=== PATIENT | female | born 1975 | race African-American/Black ===

== ENCOUNTER 2020-11-17 01:07 | Emergency (ER) | payer OTHER, SELFPAY ==
--- NOTE | ~2020-11-17 | CT_ITS ---
EXAMINATION: CT abdomen pelvis w con INDICATION: Umbilical pain TECHNIQUE: Computed tomographic images of the abdomen and pelvis were obtained after the administrati on of 100 cc of Omnipaque 350 intravenous contrast. The dose-length product (DLP) was 980.88 mGy-cm. Automated exposure control and iterative reconstruction technique were employed. COMPARISON: None available FINDINGS: There are airspace opacities of the left lower lobe, right lower lobe, and right middle lob e. The heart size is normal. The gallbladder is surgically absent. The liver, spleen, pancreas, and a drenal glands are normal. The kidneys are unremarkable. No pathologically enlarged abdominal or pelvi c lymph nodes are identified. There is no free intraperitoneal gas or evidence of bowel obstruction. High density material is seen in the otherwise normal appendix. There appears to be a submucosal fibr oid of the uterine body. There is a fat-containing umbilical hernia. There is mild lumbar spondylosis . IMPRESSION: 1. Pneumonia involving the right middle and lower lobes and left lower lobe. 2. No acute findings of the abdomen or pelvis. Reviewed, dictated and finalized at location A. OR SPECIALIST
--- NOTE | ~2020-11-17 | XR_ITS ---
EXAMINATION: XR chest 1V portable INDICATION: Chest tightness TECHNIQUE: Portable AP chest at 0 to 40 hours COMPARISON: None available FINDINGS: There are airspace opacities of the right upper lung zone and left lung base. No pleural ef fusion or pneumothorax is identified. The cardiomediastinal silhouette is normal. The visualized osse ous structures are unremarkable. IMPRESSION: 1. Airspace opacities of the right upper and left lower lung zones, consistent with pneumonia. Reviewed, dictated and finalized at location A. KROOM CLERK
[2020-11-17 01:06] VITALS: BP 117/56; PULSE 74; RESP 18; TEMP 37.1; O2SAT 99
[2020-11-17 01:38] LABS: Basophils Percent Auto 0.2 % (0.2-1.2); Hematocrit 32.4 % (37.0-47.0); Hemoglobin 9.3 g/dL (12.0-15.0); Immature Granulocyte Absolute 0.02 K/mm3 (0.00-0.031); Immature Granulocyte Percent A 0.3 % (0-0.5); Mean Corpuscular HGB Conc 28.7 g/dl (32-36); Mean Corpuscular Hemoglobin 19.6 pg (26-34); Mean Corpuscular Volume 68.2 fl (80-100); Mean Platelet Volume 10.8 fl (7.4-10.4); Monocytes Absolute Auto 0.7 K/mm3 (0.1-0.6); Monocytes Percent Auto 10.5 % (2.6-8.5); Neutrophils Absolute Auto 4.5 K/mm3 (1.3-6.7); Platelet Count Result 228 k/mm3 (150-375); Red Blood Count 4.75 M/mm3 (4.2-5.4); Red Cell Distribution Width 17.4 % (11.5-14.5); White Blood Count 6.7 K/mm3 (4.5-10.0)
[2020-11-17 01:49] LABS: Alanine Aminotransferase 30 U/L (4-35); Albumin Level 4.2 g/dL (3.5-5.1); Alkaline Phosphatase 95 U/L (38-126); Anion Gap 7 mmol/L (8-16); Aspartate Amino Transferase 35 U/L (14-36); Bilirubin,Total 0.5 mg/dL (0.2-1.3); Blood Urea Nitrogen 11 mg/dL (7-17); Calcium 8.4 mg/dL (8.4-10.2); Carbon Dioxide 27 mmol/L (22-30); Chloride 101 mmol/L (98-107); Estimated CRCL calculation 119 ml/min; Estimated Glomerular Filt Rate > 60; Glucose 93 mg/dL (65-105); Lipase 34 U/L (23-300); Potassium 3.6 mmol/L (3.4-5.0); Sodium 135 mmol/L (137-145)
[2020-11-17 01:58] LABS: Add Urine Microscopic? YES; Appearance Urine Clear (Clear); Bacteria Urine Trace /hpf; Bilirubin Urine Negative (Negative); Blood Urine Negative (Negative); Color Urine Yellow (Yellow); Glucose Urine UA Negative (Negative); Ketones Urine 1+ mg/dL (Negative); Leukocyte Esterase Ur Negative LEU/UL (Negative); Mucus Urine Heavy /lpf; Nitrate Urine Negative (Negative); Protein Urine 2+ mg/dL (Negative); RBC Urine 0-2 /hpf (0-2); Specific Grav Ur 1.033 (1.001-1.035); Squamous Epithelial Cell Urine Few /hpf (Few); Urobilinogen Urine Negative mg/dL (<2.0); WBC Urine 0-3 /hpf
--- NOTE | 2020-11-17 02:13 | ECG_ITS ---
Measurements Intervals [place] Rate: 67 P: 11 NE: 165 QRS: -13 QRSD: 94 T: 40 QT: 378 QTc: 399 Interpretive Statements SINUS RHYTHM BORDERLINE ST-T WAVE ABNORMALITY- HIGH LATERAL LEADS BORDERLINE ECG Electronically Signed On 11-17-2020 7:15:31 HAND MODEL by Jeff Mancia D.O.
--- NOTE | 2020-11-17 02:15 | ED.GENADULT ---
HPI - General Adult General Chief complaint: Abdominal Pain Stated complaint: ABD Pain Time Seen by Provider: 11/17/20 01:13 Source: patient Mode of arrival: EMS Limitations: no limitations History of Present Illness HPI narrative: This patient is a 45 year old female who presents for evaluation of not feeling well. She states she has been home from work for 3 days due to not feeling well. Her initial symptoms were sinus congestion and drainage. She also reports nausea and poor appetite. Today she also noticed drainage and pain around her umbilicus. She denies vomiting, cough, shortness of breath or diarrhea. She is unsure if she could have covid. She does note that one of her daughters is sick as well and she can not taste or smell. Related Data Allergies Allergy/AdvReac Type Severity Reaction Status Date / Time No Known Allergies Allergy Unverified 12/07/17 16:11 Review of Systems Review of Systems: All systems reviewed & are unremarkable except as noted in HPI and below Constitutional: Constitutional: Denies chills, Reports fatigue and Denies fever(s) ENT: Reports nasal congestion and Denies sore throat Cardiovascular: Cardiovascular: Denies chest pain Respiratory: Respiratory: Denies cough and Denies dyspnea Gastrointestinal: Gastrointestinal: Reports abdominal pain, Denies diarrhea, Reports nausea and Denies vomiting Musculoskeletal: Musculoskeletal: Denies back pain Neurologic: Denies headache(s), Denies focal weakness and Denies numbness PMFSH Past Medical History Medical History (Updated 11/17/20 @ 03:32 by Lexy Nolan MD) CVA (cerebral vascular accident) Lupus Social History Social History (Updated 11/17/20 @ 02:21 by Lexy Nolan MD) Smoking status: Current every day smoker Exam Const: General: no acute distress and alert Orientation/consciousness: patient oriented x3 HENMT: Head: atraumatic Ears: TM's normal bilaterally Face and sinus: face symmetric Mouth: Yes Normal oral and palatal mucosa present, Yes lip normal, Yes oropharynx normal and Yes moist mucous membranes Eyes: EOM: EOMs intact bilaterally Resp: Effort & Inspection: normal respiratory effort and no retractions Auscultation: clear to auscultation bilaterally Cardio: Rate: regular rate Rhythm: regular rhythm Heart sounds: no murmurs GI: GI Palp: Yes Soft to palpation, Yes Tenderness to palpation present (GI) and No Guarding due to palpation present (GI) Auscultation: normal bowel sounds Skin: General skin exam: normal color Neuro: General: patient oriented x3, moves all extremities and CN's II-XI intact bilaterally Course Reevaluation(s) Reevaluation #1: I have discussed with patient that she has signs consistent wit COVID and she has pneumonia . She has normal vitals and oxygen saturation. She does not take any immunosuppressants. I discussed discharge plan and management. She will follow up with PCP Date: 11/17/20 Time: 03:28 Vital Signs Vital signs: Vital Signs Temperature 98.8 F 11/17/20 01:06 Pulse Rate 74 11/17/20 01:06 Respiratory Rate 18 11/17/20 01:06 Blood Pressure 117/56 L 11/17/20 01:06 Pulse Oximetry 99 11/17/20 01:06 Temperature 98.5 F 11/17/20 04:53 Pulse Rate 77 11/17/20 04:53 Respiratory Rate 16 11/17/20 04:53 Blood Pressure 99/59 L 11/17/20 04:53 Pulse Oximetry 100 11/17/20 03:45 Medical Decision Making Vital Signs Vital Signs: Vital Signs Temperature 98.8 F 11/17/20 01:06 Pulse Rate 74 11/17/20 01:06 Respiratory Rate 18 11/17/20 01:06 Blood Pressure 117/56 L 11/17/20 01:06 Pulse Oximetry 99 11/17/20 01:06 Temperature 98.5 F 11/17/20 04:53 Pulse Rate 77 11/17/20 04:53 Respiratory Rate 16 11/17/20 04:53 Blood Pressure 99/59 L 11/17/20 04:53 Pulse Oximetry 100 11/17/20 03:45 Lab Data Lab results reviewed: Yes I reviewed the patient's lab results. Result diagrams: 11/17/20 0
[2020-11-17] MEDS: SODIUM CHLORIDE 0.9% IV 1,000 ML 999 ML IV CONT (02:25)
[2020-11-17] MEDS: ONDANSETRON INJ 4 MG/2 ML VIAL IV PUSH ×2 (02:25→04:12)
[2020-11-17 02:47] LABS: CRP 1.5 mg/dL (<1.0)
[2020-11-17 03:45] VITALS: BP 90/52; PULSE 72; RESP 16; TEMP 36.8; O2SAT 100
[2020-11-17 04:12] VITALS: BP 102/66
[2020-11-17 04:53] VITALS: BP 99/59; PULSE 77; RESP 16; TEMP 36.9
[2020-11-17 19:22] LABS: SARS-CoV-2 RNA PCR Positive
== END 2020-11-17 05:23 | disposition home or self-care (01) ==
PROVIDERS: Emergency Provider General Practice
DX: U07.1 COVID-19 (principal); J12.82 Pneumonia due to coronavirus disease 2019; Z86.73 Personal history of transient ischemic attack (TIA), and cerebral infarction without residual deficits; F17.200 Nicotine dependence, unspecified, uncomplicated
CPT/HCPCS: 36415; 71045; 74177; 80053; 81001; 81025; 83690; 85025; 86140; 87804; 93005; 96361; 96365; 96368; 96375; 96376; 99284; C9803; J0456; J0696; J2405; J7030; Q9967; U0003